=== PATIENT | male | born 1980 | race Caucasian/White ===

== ENCOUNTER 2018-03-09 20:32 | Inpatient (IN) | payer OTHER ==
[2018-03-09 21:55] VITALS: BMI 22.0
--- NOTE | 2018-03-09 22:26 | HP ---
CIWA Score - CIWA Score Nausea/Vomitin-Mild Nausea/No Vomiting Muscle Tremors: 4-Moderate,w/Arms Extend Anxiety: 4-Mod. Anxious/Guarded Agitation: 4-Moderately Restless Paroxysmal Sweats: 3 Orientation: 1-Uncertain about Date Tacttile Disturbances: 0-None Auditory Disturbances: 0-None Visual Disturbances: 0-None Headache: 0-None Present CIWA-Ar Total Score: 17 Admission ROS S - HPI Chief Complaint: C/O WITHDRAWAL SX'S. SEEKING DETOX. Allergies/Adverse Reactions: Allergies Allergy/AdvReac Type Severity Reaction Status Date / Time penicillin G Allergy Severe unknown Verified 01/16/15 14:22 History of Present Illness: 37 Y.O. MALE WITH LONG HX/O ALCOHOLISM HERE FOR DETOX. CLIENT IS KNOWN TO THIS PROGRAM. LAST HERE 2014. HE IS REFERRED BY LAST AFTER PRESENTING THERE TODAY FOR WITHDRAWAL SX'S. CLIENT WAS STABILIZED WITH LIBRIUM AND SENT HERE FOR DETOX. REPORTS LONGEST CLEAN TIME 6 MONTHS SELF SUSTAINED. REPORTS HX/O ETOH RELATED SEIZURES AND BLACK OUTS. STATES ATTEMPTED SUICIDE BY SLASHING WRIST 14 YEARS AGO. PRESENTLY DENIES SI/HI. . DENIES HX/O OD,A/V HALLUCINATIONS. PMHX: CHF, HTN PSYCH: ANXIETY, DEPRESSION Exam Limitations: No Limitations - Ebola screening Have you traveled outside of the country in the last 21 days: No (N) Have you had contact with anyone from an Ebola affected area: No Have you been sick,other than usual withdrawal symptoms: No Do you have a fever: No - Review of Systems Constitutional: Chills, Loss of Appetite, Malaise, Night Sweats, Changes in sleep EENT: reports: Blurred Vision, Dental Problems (MISSING TEETH) Respiratory: reports: No Symptoms reported Cardiac: reports: Chest Tightness (WITH DEEP BREATH) GI: reports: Diarrhea, Nausea, Poor Fluid Intake, Vomiting : reports: No Symptoms Reported Musculoskeletal: reports: Back Pain, Joint Pain, Joint Stiffness, Other ( NUMBNESS) Integumentary: reports: No Symptoms Reported Neuro: reports: Numbness, Paresthesia, Seizure, Tremors, Dizziness Endocrine: reports: No Symptoms Reported Hematology: reports: No Symptoms Reported Psychiatric: reports: Depressed Other Systems: Reviewed and Negative Patient History - Patient Medical History Hx Anemia: No Hx Asthma: Yes Hx Chronic Obstructive Pulmonary Disease (COPD): No Hx Cancer: No Hx Cardiac Disorders: Yes (ARRYTHMIA) Hx Congestive Heart Failure: Yes Hx Hypertension: Yes Hx Hypercholesterolemia: No Hx Pacemaker: No HX Cerebrovascular Accident: No Hx Seizures: Yes Hx Dementia: No Hx Diabetes: No Hx Gastrointestinal Disorders: No Hx Liver Disease: No Hx Genitourinary Disorders: No Hx Sexually Transmitted Disorders: No Hx Renal Disease (ESRD): No Hx Thyroid Disease: No Hx Human Immunodeficiency Virus (HIV): No Hx Hepatitis C: No Hx Depression: Yes Hx Suicide Attempt: Yes (cut left wrist at age 19) Hx Schizophrenia: No - Patient Surgical History Past Surgical History: Yes Hx Neurologic Surgery: No Hx Cataract Extraction: No Hx Cardiac Surgery: No Hx Lung Surgery: No Hx Breast Surgery: No Hx Breast Biopsy: No Hx Abdominal Surgery: No Hx Appendectomy: No Hx Cholecystectomy: No Hx Genitourinary Surgery: No Hx Section: No Hx Orthopedic Surgery: Yes (right femur) Anesthesia Reaction: No - PPD History Previous Implant?: Yes Documented Results: Negative w/proof Implanted On Prior [facility] Admission?: Yes Date: 01/16/15 PPD to be Administered?: Yes - Smoking Cessation Smoking history: Current every day smoker Have you smoked in the past 12 months: Yes Aproximately how many cigarettes per day: 10 Cigars Per Day: 0 Hx Chewing Tobacco Use: No Initiated information on smoking cessation: Yes 'Breaking Loose' booklet given: 03/09/18 - Substance & Tx. History Hx Alcohol Use: Yes Hx Substance Use: Yes Substance Use Type: Alcohol, Marijuana Hx Substance Use Treatment: Yes ([facility]) - Substances Abused BEER/VODKA Route: Oral Frequency: Daily Amount used: 4-25OZ/1PINT Age of first use: 1 Date of Last Use: 03/09/18 THC Route: Smoking Frequency: Daily Amount used: 7 BLUNTS Age of first use: 10 Date of Last Use: 03/09/18 Family Disease History - Family Disease History Family Disease History: Respiratory: Sister (asthma ), Other: Father (alcohol and drug dependence ), Mother (alcohol and drug dependence) Admission Physical Exam [facility] - Vital Signs Vital Signs: Vital Signs - 24 hr 03/09/18 21:54 Temperature 98.4 F Pulse Rate 112 H Respiratory 20 Rate Blood Pressure 153/98 - Physical General Appearance: Yes: Mild Distress, Moderate Distress, Alcohol on Breath, Tremorous, Anxious HEENTM: Yes: EOMI, Normal ENT Inspection, Normocephalic, Normal Voice, SHANTE, Pharynx Normal Respiratory: Yes: Chest Non-Tender, Lungs Clear, Normal Breath Sounds, No Respiratory Distress, No Accessory Muscle Use Neck: Yes: No masses,lesions,Nodules, Supple, Trachea in good position Breast: Yes: Breast Exam Deferred Cardiology: Yes: Regular Rhythm, S1, S2, Tachycardia Abdominal: Yes: Normal Bowel Sounds, Non Tender, Flat, Soft Genitourinary: Yes: Within Normal Limits Back: Yes: Normal Inspection Musculoskeletal: Yes: Gait Steady Extremities: Yes: Normal Range of Motion, Non-Tender, Tremors Neurological: Yes: Alert, Motor Strength 5/5 Integumentary: Yes: Normal Color, Dry, Warm, Other (FLUSHED FACE) Lymphatic: Yes: Within Normal Limits - Diagnostic (1) Alcohol dependence with uncomplicated withdrawal Current Visit: Yes Status: Acute (2) Alcohol related seizure Current Visit: Yes Status: Suspected (3) CHF (congestive heart failure) Current Visit: Yes Status: Chronic (4) Asthma Current Visit: Yes Status: Chronic Qualifiers: Asthma severity: mild Asthma persistence: intermittent Asthma complication type: unspecified Qualified Code(s): J45.20 - Mild intermittent asthma, uncomplicated (5) Cannabis dependence Current Visit: Yes Status: Chronic (6) HTN (hypertension) Current Visit: Yes Status: Chronic (7) Nicotine dependence Current Visit: Yes Status: Chronic Qualifiers: Nicotine product type: cigarettes Substance use status: uncomplicated Qualified Code(s): F17.210 - Nicotine dependence, cigarettes, uncomplicated (8) PTSD (post-traumatic stress disorder) Current Visit: Yes Status: Suspected Cleared for Admission [facility] - Detox or Rehab [facility] Level of Care: Medically Managed Detox Regimen/Protocol: Librium Claeared for Rehab Admission: No [facility] Breath Alcohol Content Breath Alcohol Content: 0.224 Urine Drug Screen - Results Drug Screen Negative: No Urine Drug Screen Results: THC-Marijuana, BZO-Benzodiazepines, TCA-Tricyclic Antidepress
[2018-03-09] MEDS ORDERED: P-EPHED 60MG/TRIPROLIDI 2.5MG TABLET PO PRN (23:05)
[2018-03-09] MEDS ORDERED: LOPERAMIDE HCL 2 MG CAPSULE PO PRN (23:05)
[2018-03-09] MEDS ORDERED: MAGNESIUM CITRATE 300 ML BOTTLE PO PRN (23:05)
[2018-03-09] MEDS ORDERED: MAG HYDROX/AL HYDROX/SIMETH 30 ML UNIT-DOSE CUP PO PRN (23:05)
[2018-03-09] MEDS ORDERED: MAGNESIUM HYDROX 2400MG/30ML ORAL SUSPENSION 30 ML CUP PO PRN (23:05)
[2018-03-09] MEDS ORDERED: guaiFENesin/D-METHORPHAN HB 10 ML UNIT-DOSE CUPS PO PRN (23:05)
[2018-03-09] MEDS ORDERED: MENTHOL/PHENOL 1 EACH UD MM PRN (23:05)
[2018-03-09] MEDS ORDERED: IBUPROFEN 400 MG TABLET (FP) PO PRN (23:05)
[2018-03-09] MEDS ORDERED: ACETAMINOPHEN 325 MG TABLET (FP) PO PRN (23:12)
[2018-03-10] MEDS: chlordiazePOXIDE HCL 25 MG CAPSULE PO PRN ×3 (01:52→20:50)
[2018-03-10] MEDS: MELATONIN 5 MG TABLETS PO PRN (01:53)
[2018-03-10] MEDS: chlordiazePOXIDE HCL 25 MG CAPSULE PO SCH ×5 (02:02→22:02)
[2018-03-10 10:00] LABS: HEMATOCRIT 39.1 % (35.4-49); HEMOGLOBIN 12.9 GM/dL (11.7-16.9); MCH 33.6 pg (25.7-33.7); MEAN CELL VOLUME 101.6 fl (80-96); MEAN PLT VOLUME 9.2 fl (7.5-11.1); PLATELET COUNT 116 K/MM3 (134-434); RBC 3.85 M/mm3 (4.00-5.60); RDW 13.9 % (11.9-15.9); WHITE BLOOD COUNT 8.9 K/mm3 (4.0-10.0)
--- NOTE | 2018-03-10 10:19 | EKG ---
Test Reason : Blood Pressure : / mmHG Vent. Rate : 064 BPM Atrial Rate : 064 BPM P-R Int : 160 ms QRS Dur : 110 ms QT Int : 438 ms P-R-T Axes : 061 075 071 degrees QTc Int : 451 ms NORMAL SINUS RHYTHM NON-SPECIFIC INTRA-VENTRICULAR CONDUCTION DELAY NO PREVIOUS ECGS AVAILABLE Confirmed by MARCELINA HERNANDEZ MD ([id number]) on 03/10/2018 10:19:22 AM Referred By: Confirmed By:MARCELINA HERNANDEZ MD
[2018-03-10 10:23] LABS: CHLORIDE 104 mmol/L (98-107); POTASSIUM 3.6 mmol/L (3.5-5.1); SODIUM 141 mmol/L (136-145)
[2018-03-10] MEDS: NICOTINE 14 MG/24 HOURS TOPICAL PATCH TD SCH (10:35)
[2018-03-10] MEDS: PRENATAL VITAMINS W/ FOLIC ACID TABLET (FP) PO SCH (10:36)
[2018-03-10 10:52] LABS: ALBUMIN 3.8 g/dl (3.4-5.0); ALK PHOS 86 U/L (45-117); ANION GAP 11 (8-16); BILIRUBIN,TOTAL 0.4 mg/dL (0.2-1.0); BLOOD UREA NITROGEN 5 mg/dL (7-18); CALCIUM 8.4 mg/dL (8.5-10.1); CO2 26 mmol/L (21-32); CREATININE 0.4 mg/dL (0.7-1.3); GLUCOSE,RANDOM 83 mg/dL (74-106); SGOT/AST 64 U/L (15-37); SGPT/ALT 53 U/L (12-78); TOT PROT 7.2 g/dl (6.4-8.2)
--- NOTE | 2018-03-10 11:28 | PN ---
[facility] CIWA - CIWA Score Nausea/Vomitin-No Nausea/No Vomiting Muscle Tremors: 6 Anxiety: 5 Agitation: 4-Moderately Restless Paroxysmal Sweats: 1-Minimal Palms Moist Orientation: 0-Oriented Tacttile Disturbances: 0-None Auditory Disturbances: 0-None Visual Disturbances: 0-None Headache: 0-None Present CIWA-Ar Total Score: 16 S Progress Note (SOAP) Subjective: ANXIETY,IRRITABILITY,TREMULOUS,SKIN FLUSHING, CHILLS,GOOSE BUMPS,RUNNY NOSE. Objective: 03/10/18 11:26 Vital Signs 03/10/18 03/10/18 03/10/18 03:30 03:48 04:59 Temperature 97.6 F Pulse Rate 57 L 59 L Respiratory 18 19 19 Rate Blood Pressure 136/86 03/10/18 03/10/18 03/10/18 05:00 05:59 06:29 Temperature Pulse Rate 59 L 60 58 L Respiratory 19 19 19 Rate Blood Pressure 03/10/18 03/10/18 03/10/18 06:59 07:29 07:39 Temperature 97.9 F Pulse Rate 58 L 60 59 L Respiratory 19 19 19 Rate Blood Pressure 140/84 03/10/18 03/10/18 03/10/18 07:59 08:30 09:00 Temperature Pulse Rate 62 78 78 Respiratory 19 18 18 Rate Blood Pressure 03/10/18 03/10/18 03/10/18 09:30 09:42 10:00 Temperature 98.4 F Pulse Rate 78 78 76 Respiratory 18 16 18 Rate Blood Pressure 141/90 03/10/18 03/10/18 10:30 11:00 Temperature Pulse Rate 74 78 Respiratory 18 18 Rate Blood Pressure Laboratory Tests 03/10/18 03/10/18 07:30 07:30 WBC 8.9 D RBC 3.85 L Hgb 12.9 D Hct 39.1 MCV 101.6 H MCH 33.6 MCHC 33.0 RDW 13.9 Plt Count 116 L MPV 9.2 Sodium 141 Potassium 3.6 Chloride 104 Carbon Dioxide 26 Anion Gap 11 BUN 5 L D Creatinine 0.4 L Creat Clearance w eGFR > 60 Random Glucose 83 Calcium 8.4 L Total Bilirubin 0.4 D AST 64 H D ALT 53 D Alkaline Phosphatase 86 Total Protein 7.2 Albumin 3.8 OTHER LABS PENDING Assessment: 03/10/18 11:27 MODERATE TO SEVERE WITHDRAWAL SX Plan: CONTINUE DETOX ADDITIONAL LIBRIUM 50 MG PO ONCE AT 2:00 PM TODAY INCREASE PO FLUIDS
[2018-03-10] MEDS: ASPIRIN 81 MG CHEWABLE TABLETS PO SCH (11:58)
[2018-03-10] MEDS ORDERED: DIGOXIN 0.125 MG TABLET (FP) PO SCH (12:15)
[2018-03-10] MEDS ORDERED: LISINOPRIL 5 MG TABLET (FP) PO SCH (12:15)
[2018-03-10] MEDS ORDERED: AMIODARONE HCL 200 MG TABLET (FP) PO SCH (12:15)
--- NOTE | 2018-03-10 12:25 | PN ---
[facility] Progress Note Note: PT REPORTS HE HAS NOT BEEN TAKING HIS AMADIORONE, DIGOXIN AND LISINOPRIL FOR MANY MONTHS AGO. HOWEVER PT HAS RECENT METAPROLOL SUCC.ER 50 MG PO DAILY ORDERED ON 02/13/18.
[2018-03-10] MEDS ORDERED: chlordiazePOXIDE HCL 25 MG CAPSULE PO ONE (14:00)
--- NOTE | 2018-03-10 16:49 | CONSULT ---
[facility] Psychiatric Consult - Data Date of interview: 03/10/18 Admission source: [facility] Identifying data: Readmission to [facility] for this 37 y/o [place] male seeking detox treatment on for alcohol and cannabis dependence.Patient is single,a father of one,domiciled,unemployed and supported on Public Assistance. Substance Abuse History: Confirmed by patient in this interview.Smoking history : Current every day smoker. Have you smoked in the past 12 months: Yes. Aproximately how many cigarettes per day: 10. Cigars Per Day: 0. Hx Chewing Tobacco Use: No. Initiated information on smoking cessation: Yes. 'Breaking Loose' booklet given: 03/09/18. - Substance & Tx. History. Hx Alcohol Use: Yes. Hx Substance Use: Yes. Substance Use Type: Alcohol, Marijuana. Hx Substance Use Treatment: Yes ([facility]). - Substances Abused. BEER/VODKA. Route: Oral. Frequency: Daily. Amount used: 4-25OZ/1PINT. Age of first use: 1. Date of Last Use: 03/09/18. THC. Route: Smoking. Frequency: Daily. Amount used: 7 BLUNTS. Age of first use: 10. Date of Last Use: 03/09/18 Medical History: Remarkable for hypertension,congestive heart failure,bronchial asthma (childhood),withdrawal-related seizures and a distant history of orthosurgery for fracture of right femur. Psychiatric History: No reported history of psychiatric hospitalizations.Diagnosed with MDD and Anxiety Disorder at the [facility] in [place], [place].Patient was prescribed, three years ago, zoloft 150 mg/day + trazodone 150 mg/hs (confirmed by pharmacy claims of 03/07/18 at the [facility]).Mr Fregoso is currently seeing a private psychiatrist in the [place] for medication management.Patient endorses a remote history of suicide attempt, age 19, via self-mutilation (wrist-cutting). Physical/Sexual Abuse/Trauma History: Patient denies. Additional Comment: Urine Drug Screen Results: THC-Marijuana, BZO- Benzodiazepines, TCA-Tricyclic Antidepressant.Noted. Mental Status Exam - Mental Status Exam Alert and Oriented to: Time, Place, Person Cognitive Function: Good Patient Appearance: Well Groomed Mood: Nervous, Withdrawn, Anxious Affect: Mood Congruent Patient Behavior: Fatigued, Appropriate, Cooperative Speech Pattern: Clear, Appropriate Voice Loudness: Normal Thought Process: Goal Oriented Thought Disorder: Not Present Hallucinations: Denies Suicidal Ideation: Denies Homicidal Ideation: Denies Insight/Judgement: Poor Sleep: Poorly, Difficulty falling asleep Appetite: Good Muscle strength/Tone: Normal Gait/Station: Normal Psychiatric Findings - Problem List ([place] 1, 2,3) (1) Alcohol dependence with uncomplicated withdrawal Status: Acute (2) Cannabis dependence Status: Acute (3) Nicotine dependence Status: Acute Qualifiers: Nicotine product type: cigarettes Substance use status: in withdrawal Qualified Code(s): F17.213 - Nicotine dependence, cigarettes, with withdrawal (4) MDD (major depressive disorder) Status: Chronic (5) Insomnia Status: Acute - Initial Treatment Plan Initial Treatment Plan: Psychoeducation.Sleep hygiene.Detoxification in progress.Medications : trazodone 100 mg po hs + zoloft 150 mg po daily.Side effects/benefits of both drugs are discussed with the patient.Made aware of the risk for priapism,sexual dysfunction and suicidal ideation.Mr Fregoso is in agreement with this careplan.Observation.
[2018-03-10 17:12] LABS: URINE APPEARANCE SLCLOUDY; URINE BILIRUBIN NEGATIVE (<2.0 mg/dL); URINE BLOOD NEGATIVE (NEGATIVE); URINE COLOR AMBER; URINE GLUCOSE (UA) NEGATIVE (NEGATIVE); URINE KETONE NEGATIVE (NEGATIVE); URINE LEUK ESTERASE NEGATIVE (NEGATIVE); URINE NITRITE NEGATIVE (NEGATIVE)
[2018-03-10 17:29] LABS: URINE PROTEIN 3+ (NEGATIVE)
[2018-03-10 17:31] LABS: EPI CELLS RARE /HPF (FEW); URINE MUCUS MANY
[2018-03-10] MEDS ORDERED: traZODone HCL 100 MG TABLET (FP) PO SCH (22:00)
[2018-03-10] MEDS: THIAMINE HCL 100 MG TABLET (FP) PO SCH (22:02)
[2018-03-11] MEDS: chlordiazePOXIDE HCL 25 MG CAPSULE PO PRN ×2 (06:23→14:07)
[2018-03-11] MEDS: chlordiazePOXIDE HCL 25 MG CAPSULE PO SCH ×3 (08:09→17:31)
[2018-03-11] MEDS: SERTRALINE HCL 50 MG TABLET (FP) PO SCH (10:36)
[2018-03-11] MEDS: PRENATAL VITAMINS W/ FOLIC ACID TABLET (FP) PO SCH (10:36)
[2018-03-11] MEDS: ASPIRIN 81 MG CHEWABLE TABLETS PO SCH (10:36)
[2018-03-11] MEDS: NICOTINE 14 MG/24 HOURS TOPICAL PATCH TD SCH (10:37)
[2018-03-11] MEDS ORDERED: IBUPROFEN 600 MG TABLET (FP) PO PRN (12:00)
--- NOTE | 2018-03-11 13:58 | PN ---
S CIWA - CIWA Score Nausea/Vomitin Muscle Tremors: 4-Moderate,w/Arms Extend Anxiety: 3 Agitation: 2 Paroxysmal Sweats: 3 Orientation: 2-Disoriented Date<2 days Tacttile Disturbances: 0-None Auditory Disturbances: 0-None Visual Disturbances: 0-None Headache: 0-None Present CIWA-Ar Total Score: 19 S Progress Note (SOAP) Subjective: Vomiting, Diarrhea, Interrupted Sleep, Sweating, Body Aches, Tremors. Objective: PATIENT A & O X 2 (UNCERTAIN ABOUT CURRENT DAY / DATE). PATIENT OBSERVED AMBULATING ON UNIT. NO ACUTE DISTRESS. 03/11/18 13:54 Vital Signs Temperature 96.5 F L 03/11/18 09:30 Pulse Rate 60 03/11/18 09:30 Respiratory Rate 18 03/11/18 09:30 Blood Pressure 147/94 03/11/18 09:30 O2 Sat by Pulse Oximetry (%) Laboratory Tests 03/10/18 03/10/18 03/10/18 07:30 07:30 07:30 WBC 8.9 D RBC 3.85 L Hgb 12.9 D Hct 39.1 MCV 101.6 H MCH 33.6 MCHC 33.0 RDW 13.9 Plt Count 116 L MPV 9.2 Sodium 141 Potassium 3.6 Chloride 104 Carbon Dioxide 26 Anion Gap 11 BUN 5 L D Creatinine 0.4 L Creat Clearance w eGFR > 60 Random Glucose 83 Calcium 8.4 L Total Bilirubin 0.4 D AST 64 H D ALT 53 D Alkaline Phosphatase 86 Total Protein 7.2 Albumin 3.8 Urine Color Urine Appearance Urine pH Ur Specific Star Urine Protein Urine Glucose (UA) Urine Ketones Urine Blood Urine Nitrite Urine Bilirubin Urine Urobilinogen Ur Leukocyte Esterase Urine WBC (Auto) Urine RBC (Auto) Ur Epithelial Cells Urine Mucus Digoxin RPR Titer Nonreactive 03/10/18 03/10/18 11:40 15:50 WBC RBC Hgb Hct MCV MCH MCHC RDW Plt Count MPV Sodium Potassium Chloride Carbon Dioxide Anion Gap BUN Creatinine Creat Clearance w eGFR Random Glucose Calcium Total Bilirubin AST ALT Alkaline Phosphatase Total Protein Albumin Urine Color Sarina Urine Appearance Slcloudy Urine pH 6.0 Ur Specific Star 1.030 Urine Protein 3+ H Urine Glucose (UA) Negative Urine Ketones Negative Urine Blood Negative Urine Nitrite Negative Urine Bilirubin Negative Urine Urobilinogen 2.0 Ur Leukocyte Esterase Negative Urine WBC (Auto) 4 Urine RBC (Auto) 17 Ur Epithelial Cells Rare Urine Mucus Many Digoxin 0.13 L RPR Titer LABS NOTED. 03/11/18 14:05 Assessment: 03/11/18 13:54 WITHDRAWAL SYMPTOMS. HYPERTENSION. 03/11/18 14:05 Plan: CONTINUE DETOX. LISINOPRIL, 10 MG PO DAILY FOR PERSISTENTLY ELEVATED BP (PATIENT REPORTS THAT HE HAS TAKEN THIS MEDICATION IN THE PAST FOR HTN.
--- NOTE | 2018-03-11 14:26 | PN ---
[facility] Progress Note Note: Psychiatry Attending's note : Approached by patient. Current dose of trazodone not effective. Request : increase of dose. Mr Fregoso is used to 150 mg/hs. Plan : Trazodone 150 mg po hs.Ordered. Patient agrees.
[2018-03-11] MEDS: LISINOPRIL 10 MG TABLET (FP) PO SCH (14:50)
[2018-03-11] MEDS: hydrOXYzine PAMOATE 50 MG CAPSULE (FP) PO PRN (20:14)
[2018-03-11] MEDS: traZODone HCL 50 MG TABLET (FP) PO SCH (22:17)
[2018-03-11] MEDS: chlordiazePOXIDE 5 MG CAPSULE PO SCH (22:17)
[2018-03-11] MEDS: THIAMINE HCL 100 MG TABLET (FP) PO SCH (22:17)
[2018-03-11] MEDS: MELATONIN 5 MG TABLETS PO PRN (22:18)
[2018-03-12] MEDS: chlordiazePOXIDE 5 MG CAPSULE PO SCH ×3 (06:04→17:15)
[2018-03-12] MEDS: LISINOPRIL 10 MG TABLET (FP) PO SCH (10:04)
[2018-03-12] MEDS: ASPIRIN 81 MG CHEWABLE TABLETS PO SCH (10:04)
[2018-03-12] MEDS: SERTRALINE HCL 50 MG TABLET (FP) PO SCH (10:05)
[2018-03-12] MEDS: NICOTINE 14 MG/24 HOURS TOPICAL PATCH TD SCH (10:05)
[2018-03-12] MEDS: PRENATAL VITAMINS W/ FOLIC ACID TABLET (FP) PO SCH (10:05)
[2018-03-12] MEDS: chlordiazePOXIDE HCL 25 MG CAPSULE PO PRN (14:12)
--- NOTE | 2018-03-12 15:04 | PN ---
[facility] Progress Note (SOAP) Subjective: Diarrhea, Tremors, Sweating. Objective: PATIENT A & O X 3, OBSERVED AMBULATING ON UNIT. NO ACUTE DISTRESS. 03/12/18 14:59 Vital Signs Temperature 97.5 F L 03/12/18 13:19 Pulse Rate 63 03/12/18 13:19 Respiratory Rate 18 03/12/18 13:19 Blood Pressure 122/78 03/12/18 13:19 O2 Sat by Pulse Oximetry (%) Laboratory Tests 03/10/18 03/10/18 03/10/18 07:30 07:30 07:30 WBC 8.9 D RBC 3.85 L Hgb 12.9 D Hct 39.1 MCV 101.6 H MCH 33.6 MCHC 33.0 RDW 13.9 Plt Count 116 L MPV 9.2 Sodium 141 Potassium 3.6 Chloride 104 Carbon Dioxide 26 Anion Gap 11 BUN 5 L D Creatinine 0.4 L Creat Clearance w eGFR > 60 Random Glucose 83 Calcium 8.4 L Total Bilirubin 0.4 D AST 64 H D ALT 53 D Alkaline Phosphatase 86 Total Protein 7.2 Albumin 3.8 Urine Color Urine Appearance Urine pH Ur Specific [place] Urine Protein Urine Glucose (UA) Urine Ketones Urine Blood Urine Nitrite Urine Bilirubin Urine Urobilinogen Ur Leukocyte Esterase Urine WBC (Auto) Urine RBC (Auto) Ur Epithelial Cells Urine Mucus Digoxin RPR Titer Nonreactive 03/10/18 03/10/18 11:40 15:50 WBC RBC Hgb Hct MCV MCH MCHC RDW Plt Count MPV Sodium Potassium Chloride Carbon Dioxide Anion Gap BUN Creatinine Creat Clearance w eGFR Random Glucose Calcium Total Bilirubin AST ALT Alkaline Phosphatase Total Protein Albumin Urine Color Sarina Urine Appearance Slcloudy Urine pH 6.0 Ur Specific [place] 1.030 Urine Protein 3+ H Urine Glucose (UA) Negative Urine Ketones Negative Urine Blood Negative Urine Nitrite Negative Urine Bilirubin Negative Urine Urobilinogen 2.0 Ur Leukocyte Esterase Negative Urine WBC (Auto) 4 Urine RBC (Auto) 17 Ur Epithelial Cells Rare Urine Mucus Many Digoxin 0.13 L RPR Titer LABS NOTED. Assessment: 03/12/18 14:59 WITHDRAWAL SYMPTOMS. Plan: CONTINUE DETOX. INCRASE DAILY PO FLUID INTAKE. PRN IMMODIUM FOR DIARRHEA. PATIENT ADVISED TO FOLLOW-UP WITH CELL PHONE REPAIR TECHNICIAN DR. HUBBARD OF [facility] ( [place], [place] AFTER DISCAHRGE FROM DETOX UNIT FOR MEDICAL ASSESSMENT AND OR HISTORY OF CHF AND HTN. PATIENT NOTES THAT HE WILL GOING TO SEE DR. HUBBARD FOR MEDICAL APPOINTMENT WITHIN THE NEXT DAY OR TWO. PATIENT SCHEDULED FOR D/C TOMORROW.
[2018-03-12] MEDS: chlordiazePOXIDE HCL 10 MG CAPSULE PO SCH (22:23)
[2018-03-12] MEDS: hydrOXYzine PAMOATE 50 MG CAPSULE (FP) PO PRN (22:23)
[2018-03-12] MEDS: traZODone HCL 50 MG TABLET (FP) PO SCH (22:23)
[2018-03-12] MEDS: THIAMINE HCL 100 MG TABLET (FP) PO SCH (22:23)
[2018-03-13] MEDS: chlordiazePOXIDE HCL 10 MG CAPSULE PO SCH (06:08)
[2018-03-13 06:40] VITALS: BP 120/74; PULSE 56; TEMP 97.5
[2018-03-13] MEDS: NICOTINE 14 MG/24 HOURS TOPICAL PATCH TD SCH (09:22)
[2018-03-13] MEDS: ASPIRIN 81 MG CHEWABLE TABLETS PO SCH (09:22)
[2018-03-13] MEDS: PRENATAL VITAMINS W/ FOLIC ACID TABLET (FP) PO SCH (09:22)
[2018-03-13] MEDS: SERTRALINE HCL 50 MG TABLET (FP) PO SCH (09:22)
[2018-03-13] MEDS: LISINOPRIL 10 MG TABLET (FP) PO SCH (09:22)
--- NOTE | 2018-03-13 16:04 | PN ---
S Progress Note (SOAP) Subjective: denies any complaints Objective: 03/13/18 16:03 A & O x 3 In no acute distress Vital Signs Temperature 97.5 F L 03/13/18 06:39 Pulse Rate 56 L 03/13/18 06:39 Respiratory Rate 18 03/13/18 06:39 Blood Pressure 120/74 03/13/18 06:39 O2 Sat by Pulse Oximetry (%) Assessment: 03/13/18 16:04 Detox successfully completed Plan: for discharge
--- NOTE | 2018-03-13 16:06 | DS ---
[facility] Detox Discharge Summary Admission Date: 03/09/18 Discharge Date: 03/13/18 - History Additional Comments: Pt for discharge Will do aftercare as out patient in the community Will follow up with PMD Dr Urbano in the week at [facility] 2 weeks supply of medical prescriptions sent electronically to pt's pharmacy at [facility] - pt aware Pertinent Past History: CHF HTN Asthma - Physical Exam Results Vital Signs: Vital Signs Temperature 97.5 F L 03/13/18 06:39 Pulse Rate 56 L 03/13/18 06:39 Respiratory Rate 18 03/13/18 06:39 Blood Pressure 120/74 03/13/18 06:39 O2 Sat by Pulse Oximetry (%) Pertinent Admission Physical Exam Findings: Withdrawal sx - Treatment Hospital Course: Detox Protocol Followed, Detoxed Safely, Responded well, Discharged Condition Good, Rehab Referral Accepted Patient has Accepted a Rehab Referral to: O/P Aftercare Meetings - Medication Discharge Medications: Ambulatory Orders Buspirone HCl [Buspar -] 10 mg PO DAILY #30 tablet 01/17/15 traZODone HCL [Desyrel -] 100 mg PO HS #30 tablet 01/17/15 Amiodarone HCl 200 mg PO DAILY 03/10/18 Aspirin [ASA -] 81 mg PO DAILY 30 Days #30 tab.chew 03/13/18 Digoxin [Lanoxin -] 125 mcg PO DAILY 15 Days #15 tablet 03/13/18 Folic Acid - 1 tab PO DAILY 15 Days #15 tablet 03/13/18 Lisinopril 2.5 mg PO DAILY #14 tablet 03/13/18 Metoprolol Succinate 50 mg PO DAILY 15 Days #15 tab.er.24h 03/13/18 - Diagnosis (1) Alcohol dependence with uncomplicated withdrawal Status: Acute (2) Cannabis dependence Status: Acute (3) Insomnia Status: Acute (4) Nicotine dependence Status: Acute Qualifiers: Nicotine product type: cigarettes Substance use status: in withdrawal Qualified Code(s): F17.213 - Nicotine dependence, cigarettes, with withdrawal (5) Seizure disorder Status: Acute (6) Asthma Status: Chronic Qualifiers: Asthma severity: mild Asthma persistence: intermittent Asthma complication type: uncomplicated Qualified Code(s): J45.20 - Mild intermittent asthma, uncomplicated (7) CHF (congestive heart failure) Status: Chronic Qualifiers: Heart failure type: unspecified Heart failure chronicity: unspecified Qualified Code(s): I50.9 - Heart failure, unspecified (8) HTN (hypertension) Status: Chronic Qualifiers: Hypertension type: essential hypertension Qualified Code(s): I10 - Essential (primary) hypertension (9) Alcohol related seizure Status: Suspected - AMA Did Patient Leave Against Medical Advice: No
== END 2018-03-13 08:50 | disposition home or self-care (01) | DRG 755 ==
LOC: YASAS 20:32 → Y3N 23:10
PROVIDERS: ADMIT Surgery; ATTEND Surgery
PROC: HZ2ZZZZ Detoxification Services for Substance Abuse Treatment (ICD-10-PCS; principal; 2018-03-09)
DX: F43.10 Post-traumatic stress disorder, unspecified (principal); F10.230 Alcohol dependence with withdrawal, uncomplicated; F12.20 Cannabis dependence, uncomplicated; F17.210 Nicotine dependence, cigarettes, uncomplicated; F32.9 Major depressive disorder, single episode, unspecified; G40.509 Epileptic seizures related to external causes, not intractable, without status epilepticus; G47.00 Insomnia, unspecified; I10 Essential (primary) hypertension; I50.9 Heart failure, unspecified; J45.20 Mild intermittent asthma, uncomplicated; Z91.5 Personal history of self-harm; Z88.0 Allergy status to penicillin
CPT/HCPCS: 36415; 80053; 80162; 81003; 81015; 85027; 86593; 93005; 93010

== ENCOUNTER 2018-12-14 14:17 | Inpatient (IN) | payer OTHER ==
[2018-12-14 15:10] VITALS: BMI 22.0
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
[2018-12-14] MEDS ORDERED: MAG HYDROX/AL HYDROX/SIMETH 30 ML UNIT-DOSE CUP PO PRN (17:50)
[2018-12-14] MEDS ORDERED: BISMUTH SUBSALICYLATE 524 MG/30 ML UD PO PRN (17:50)
[2018-12-14] MEDS ORDERED: ACETAMINOPHEN 325 MG TABLET (FP) PO PRN ×2 (17:50)
[2018-12-14] MEDS ORDERED: NICOTINE POLACRILEX 2 MG GUM BUC PRN (17:50)
[2018-12-14] MEDS ORDERED: MENTHOL/PHENOL 1 EACH UD MM PRN (17:50)
[2018-12-14] MEDS ORDERED: MAGNESIUM CITRATE 300 ML BOTTLE PO PRN (17:50)
[2018-12-14] MEDS ORDERED: IBUPROFEN 400 MG TABLET (FP) PO PRN (17:50)
[2018-12-14] MEDS ORDERED: MAGNESIUM HYDROX 2400MG/30ML ORAL SUSPENSION 30 ML CUP PO PRN (17:50)
[2018-12-14] MEDS ORDERED: ALBUTEROL SO4 0.083% IH SOL 2.5 MG/3 ML VIAL.NEB. NEB PRN (17:54)
[2018-12-14] MEDS: chlordiazePOXIDE HCL 25 MG CAPSULE PO PRN (20:14)
[2018-12-14] MEDS: LISINOPRIL 5 MG TABLET (FP) PO SCH (20:16)
[2018-12-14] MEDS: ASPIRIN 81 MG CHEWABLE TABLETS PO SCH (20:16)
[2018-12-14] MEDS: DIGOXIN 0.125 MG TABLET (FP) PO SCH (20:17)
[2018-12-14] MEDS: chlordiazePOXIDE HCL 25 MG CAPSULE PO SCH (22:36)
[2018-12-14] MEDS: THIAMINE HCL 100 MG TABLET (FP) PO SCH (22:37)
[2018-12-14] MEDS: MELATONIN 5 MG TABLETS PO PRN (22:37)
[2018-12-15] MEDS: chlordiazePOXIDE HCL 25 MG CAPSULE PO SCH ×4 (05:49→22:58)
[2018-12-15] MEDS: ASPIRIN 81 MG CHEWABLE TABLETS PO SCH (10:32)
[2018-12-15] MEDS: PRENATAL VITAMINS W/ FOLIC ACID TABLET (FP) PO SCH (10:32)
[2018-12-15] MEDS: DIGOXIN 0.125 MG TABLET (FP) PO SCH (10:33)
[2018-12-15] MEDS: FOLIC ACID 1 MG TABLET (FP) PO SCH (10:33)
[2018-12-15] MEDS: LISINOPRIL 5 MG TABLET (FP) PO SCH (10:34)
[2018-12-15 11:01] LABS: HEMATOCRIT 38.4 % (35.4-49); HEMOGLOBIN 13.1 GM/dL (11.7-16.9); MCHC 34.2 g/dl (32.0-35.9); MEAN CELL VOLUME 99.2 fl (80-96); MEAN PLT VOLUME 8.8 fl (7.5-11.1); PLATELET COUNT 165 K/MM3 (134-434); RBC 3.87 M/mm3 (4.00-5.60); RDW 16.3 % (11.9-15.9); WHITE BLOOD COUNT 5.7 K/mm3 (4.0-10.0)
[2018-12-15 11:06] LABS: ALBUMIN 3.9 g/dl (3.4-5.0); ALK PHOS 90 U/L (45-117); ANION GAP 6 MMOL/L (8-16); BILIRUBIN,TOTAL 0.6 mg/dL (0.2-1); BLOOD UREA NITROGEN 10 mg/dL (7-18); CALCIUM 8.7 mg/dL (8.5-10.1); CHLORIDE 104 mmol/L (98-107); CO2 28 mmol/L (21-32); CREATININE 0.8 mg/dL (0.55-1.3); GLUCOSE,RANDOM 83 mg/dL (74-106); SGOT/AST 152 U/L (15-37); SGPT/ALT 80 U/L (13-61); SODIUM 138 mmol/L (136-145); TOT PROT 8.7 g/dl (6.4-8.2)
[2018-12-15] MEDS: chlordiazePOXIDE HCL 25 MG CAPSULE PO PRN (12:58)
--- NOTE | 2018-12-15 15:58 | CONSULT ---
[facility] Psychiatric Consult - Data Date of interview: 12/15/18 Admission source: [facility] Identifying data: This is one of multiple admissions to [facility] for this 38 y/ o [place] male, referred by [facility], for detoxification (alcohol, cannabis, benzodiazepine). Interviewed on . Patient is single, a father of one, domiciled, unemployed and supported on Public Assistance. Substance Abuse History: Confirmed by the patient in this interview. Details in current [facility] report : Smoking history: Current every day smoker. Have you smoked in the past 12 months: Yes. Aproximately how many cigarettes per day: 10. Cigars Per Day: 0. Hx Chewing Tobacco Use: No. Initiated information on smoking cessation: No. - Substances Abused. Alcohol. Route: Oral. Frequency: Daily. Amount used: 1 PINT VODKA. Age of first use: 10. Date of Last Use: 12/14/18. Marijuana/Hashish. Route: Smoking. Frequency: Daily. Amount used: 1 ounce. Age of first use: 10. Date of Last Use: 12/14/18 Medical History: Consistent with dyslipidemia, hypertension, congestive heart failure, bronchial asthma (childhood), withdrawal-related seizures and a distant history of orthosurgery for fracture of right femur (age 19). Psychiatric History: Patient denies history of psychiatric hospitalizations. Carries a lifetime diagnosis of MDD and Anxiety Disorder. Mr Zenobia beaver sees a psychiatrist at the [facility] for medication management (zoloft 150 mg/day + trazodone 100 mg/hs). Endorses consistent adherence to medications (last taken prior [facility] visit). Reported history of one suicide attempt, at age 19 , via self-mutilation (wrist-cutting). Physical/Sexual Abuse/Trauma History: No reported history of abuse. Additional Comment: Urine Drug Screen Results: THC-Marijuana, BZO- Benzodiazepines. Noted. Mental Status Exam - Mental Status Exam Alert and Oriented to: Time, Place, Person Cognitive Function: Good Patient Appearance: Well Groomed Mood: Nervous, Anxious Affect: Mood Congruent, Constricted Patient Behavior: Fatigued, Appropriate, Cooperative Speech Pattern: Clear, Appropriate Thought Process: Intact, Goal Oriented Thought Disorder: Not Present Hallucinations: Denies Suicidal Ideation: Denies Homicidal Ideation: Denies Insight/Judgement: Poor Sleep: Poorly, Difficulty falling asleep Appetite: Good Muscle strength/Tone: Normal Gait/Station: Normal Psychiatric Findings - Problem List ([place] 1, 2,3) (1) Alcohol dependence with uncomplicated withdrawal Current Visit: Yes Status: Acute (2) Cannabis dependence Current Visit: Yes Status: Chronic (3) Nicotine dependence Current Visit: Yes Status: Chronic Qualifiers: Nicotine product type: cigarettes Substance use status: in withdrawal Qualified Code(s): F17.213 - Nicotine dependence, cigarettes, with withdrawal (4) MDD (major depressive disorder) Current Visit: Yes Status: Chronic Comment: As per history. On medications. (5) Insomnia Current Visit: Yes Status: Chronic - Initial Treatment Plan Initial Treatment Plan: Psychoeducation. Sleep hygiene. Detoxification. Support. AA meetings. Medications resumed : zoloft 150 mg po daily + trazodone 100 mg po hs. Side effects/benefits of both drugs are discussed with the patient. Mr Zenobia beaver is made aware of the risk of priapism (trazodone) and suicidal ideation (zoloft). Patient reports a sustained history of good tolerability to these medications. Verbal consent obtained from patient. Observation.
[2018-12-15] MEDS: NICOTINE 14 MG/24 HOURS TOPICAL PATCH TD SCH (16:05)
[2018-12-15] MEDS ORDERED: diphenhydrAMINE HCL 25 MG CAPSULE (FP) PO ONE ×2 (16:06→21:51)
[2018-12-15] MEDS: diphenhydrAMINE HCL 50 MG CAPSULE PO PRN (16:07)
[2018-12-15] MEDS: THIAMINE HCL 100 MG TABLET (FP) PO SCH (22:58)
[2018-12-15] MEDS: traZODone HCL 50 MG TABLET (FP) PO SCH (22:58)
--- NOTE | 2018-12-16 00:06 | PN ---
S CIWA - CIWA Score Nausea/Vomitin-No Nausea/No Vomiting Muscle Tremors: 3 Anxiety: 3 Agitation: 0-Normal Activity Paroxysmal Sweats: 3 Orientation: 0-Oriented Tacttile Disturbances: 0-None Auditory Disturbances: 3-Moderate Harsh/Frighten Visual Disturbances: 3-Moderate Sensitivity Headache: 0-None Present CIWA-Ar Total Score: 15 S Progress Note (SOAP) Subjective: Body Aches, Tremors, Sweating, Interrupted Sleep. Objective: PATIENT A & O X 3, OBSERVED AMBULATING ON UNIT. IN NO ACUTE DISTRESS. 12/16/18 00:04 Vital Signs Temperature 97.5 F L 12/15/18 20:00 Pulse Rate 65 12/15/18 20:00 Respiratory Rate 18 12/15/18 20:00 Blood Pressure 134/86 12/15/18 20:00 O2 Sat by Pulse Oximetry (%) Laboratory Tests 12/15/18 12/15/18 12/15/18 07:00 07:00 07:00 WBC 5.7 RBC 3.87 L Hgb 13.1 Hct 38.4 MCV 99.2 H MCH 34.0 H MCHC 34.2 RDW 16.3 H Plt Count 165 D MPV 8.8 Sodium 138 Potassium 4.0 Chloride 104 Carbon Dioxide 28 Anion Gap 6 L BUN 10 Creatinine 0.8 Creat Clearance w eGFR > 60 Random Glucose 83 Calcium 8.7 Total Bilirubin 0.6 AST 152 H ALT 80 H Alkaline Phosphatase 90 Total Protein 8.7 H Albumin 3.9 HIV 1&2 Antibody Screen Negative HIV P24 Antigen Negative LABS NOTED. Assessment: 12/16/18 00:05 WITHDRAWAL SYMPTOMS. ELEVATED LIVER ENZYMES. HYPERTENSION. Plan: CONTINUE DETOX. INCREASE DAILY PO FLUID INTAKE,. REPEAT AST TOMORROW AM FOR ELEVATED ADMISSION LEVEL. CONTINUE TO MONITOR BLOOD PRESSURE.
[2018-12-16] MEDS: chlordiazePOXIDE HCL 25 MG CAPSULE PO SCH ×3 (05:02→17:36)
[2018-12-16] MEDS: DIGOXIN 0.125 MG TABLET (FP) PO SCH (10:05)
[2018-12-16] MEDS: FOLIC ACID 1 MG TABLET (FP) PO SCH (10:05)
[2018-12-16] MEDS: NICOTINE 14 MG/24 HOURS TOPICAL PATCH TD SCH (10:05)
[2018-12-16] MEDS: ASPIRIN 81 MG CHEWABLE TABLETS PO SCH (10:05)
[2018-12-16] MEDS: LISINOPRIL 5 MG TABLET (FP) PO SCH (10:05)
[2018-12-16] MEDS: PRENATAL VITAMINS W/ FOLIC ACID TABLET (FP) PO SCH (10:05)
[2018-12-16] MEDS: SERTRALINE HCL 50 MG TABLET (FP) PO SCH (10:05)
[2018-12-16] MEDS ORDERED: diphenhydrAMINE HCL 25 MG CAPSULE (FP) PO ONE (10:56)
[2018-12-16] MEDS: diphenhydrAMINE HCL 50 MG CAPSULE PO PRN (10:57)
[2018-12-16] MEDS: chlordiazePOXIDE HCL 25 MG CAPSULE PO PRN (13:27)
[2018-12-16] MEDS ORDERED: LISINOPRIL 5 MG TABLET (FP) PO ONE (14:37)
--- NOTE | 2018-12-16 14:39 | PN ---
[facility] CIWA - CIWA Score Nausea/Vomitin-No Nausea/No Vomiting Muscle Tremors: 5 Anxiety: 2 Agitation: 0-Normal Activity Paroxysmal Sweats: 3 Orientation: 0-Oriented Tacttile Disturbances: 0-None Auditory Disturbances: 0-None Visual Disturbances: 2-Mild Sensitivity Headache: 0-None Present CIWA-Ar Total Score: 12 S Progress Note (SOAP) Subjective: Tremors, Diarrhea, Sweating. Objective: PATIENT A & O X 3, OBSERVED AMBULATING ON UNIT. IN NO ACUTE DISTRESS. 12/16/18 14:36 Vital Signs Temperature 97.8 F 12/16/18 13:44 Pulse Rate 84 12/16/18 13:44 Respiratory Rate 18 12/16/18 13:44 Blood Pressure 138/93 12/16/18 13:44 O2 Sat by Pulse Oximetry (%) Laboratory Tests 12/15/18 12/15/18 12/15/18 07:00 07:00 07:00 WBC 5.7 RBC 3.87 L Hgb 13.1 Hct 38.4 MCV 99.2 H MCH 34.0 H MCHC 34.2 RDW 16.3 H Plt Count 165 D MPV 8.8 Sodium 138 Potassium 4.0 Chloride 104 Carbon Dioxide 28 Anion Gap 6 L BUN 10 Creatinine 0.8 Creat Clearance w eGFR > 60 Random Glucose 83 Calcium 8.7 Total Bilirubin 0.6 AST 152 H ALT 80 H Alkaline Phosphatase 90 Total Protein 8.7 H Albumin 3.9 RPR Titer HIV 1&2 Antibody Screen Negative HIV P24 Antigen Negative 12/15/18 12/16/18 07:00 07:40 WBC RBC Hgb Hct MCV MCH MCHC RDW Plt Count MPV Sodium Potassium Chloride Carbon Dioxide Anion Gap BUN Creatinine Creat Clearance w eGFR Random Glucose Calcium Total Bilirubin AST 97 H ALT Alkaline Phosphatase Total Protein Albumin RPR Titer Nonreactive HIV 1&2 Antibody Screen HIV P24 Antigen LABS NOTED. RESULT OF REPEAT AST LEVEL NOTED, REDUCTION IN LEVEL NOTED. 12/16/18 14:38 Assessment: 12/16/18 14:38 WITHDRAWAL SYMPTOMS. HYPERTENSION. ELEVATED LIVER ENZYMES. 12/16/18 14:39 Plan: CONTINUE DETOX. INCREASE DAILY DOSE OF LISINOPRIL TO 10 MG PO DAILY FOR PERSISTENTLY ELEVATED BLOOD PRESSURE DESPITE TREATMENT.
[2018-12-16] MEDS: THIAMINE HCL 100 MG TABLET (FP) PO SCH (22:30)
[2018-12-16] MEDS: chlordiazePOXIDE HCL 10 MG CAPSULE PO SCH (22:31)
[2018-12-16] MEDS: traZODone HCL 50 MG TABLET (FP) PO SCH (22:31)
[2018-12-16] MEDS: diphenhydrAMINE HCL 25 MG CAPSULE (FP) PO PRN (22:31)
[2018-12-16] MEDS ORDERED: chlordiazePOXIDE HCL 10 MG CAPSULE PO PRN (23:00)
[2018-12-17] MEDS: chlordiazePOXIDE HCL 10 MG CAPSULE PO SCH ×3 (05:38→17:32)
[2018-12-17] MEDS ORDERED: LISINOPRIL 10 MG TABLET (FP) PO SCH (10:00)
[2018-12-17] MEDS: PRENATAL VITAMINS W/ FOLIC ACID TABLET (FP) PO SCH (10:13)
[2018-12-17] MEDS: NICOTINE 14 MG/24 HOURS TOPICAL PATCH TD SCH (10:13)
[2018-12-17] MEDS: DIGOXIN 0.125 MG TABLET (FP) PO SCH (10:14)
[2018-12-17] MEDS: SERTRALINE HCL 50 MG TABLET (FP) PO SCH (10:15)
[2018-12-17] MEDS: ASPIRIN 81 MG CHEWABLE TABLETS PO SCH (10:15)
[2018-12-17] MEDS: FOLIC ACID 1 MG TABLET (FP) PO SCH (10:15)
[2018-12-17] MEDS: diphenhydrAMINE HCL 25 MG CAPSULE (FP) PO PRN ×2 (10:20→22:10)
--- NOTE | 2018-12-17 12:08 | PN ---
S CIWA - CIWA Score Nausea/Vomitin-No Nausea/No Vomiting Muscle Tremors: 2 Anxiety: 1-Mildly Anxious Agitation: 2 Paroxysmal Sweats: 1-Minimal Palms Moist Orientation: 0-Oriented Tacttile Disturbances: 0-None Auditory Disturbances: 0-None Visual Disturbances: 0-None Headache: 1-Very Mild CIWA-Ar Total Score: 7 S Progress Note (SOAP) Subjective: feeling better less tremor mild sweating social with peers in day room Objective: 12/17/18 12:08 Vital Signs Temperature 98.5 F 12/17/18 09:26 Pulse Rate 64 12/17/18 10:14 Respiratory Rate 18 12/17/18 09:26 Blood Pressure 138/89 12/17/18 09:26 O2 Sat by Pulse Oximetry (%) Laboratory Last Values WBC 5.7 K/mm3 (4.0-10.0) 12/15/18 07:00 RBC 3.87 M/mm3 (4.00-5.60) L 12/15/18 07:00 Hgb 13.1 GM/dL (11.7-16.9) 12/15/18 07:00 Hct 38.4 % (35.4-49) 12/15/18 07:00 MCV 99.2 fl (80-96) H 12/15/18 07:00 MCH 34.0 pg (25.7-33.7) H 12/15/18 07:00 MCHC 34.2 g/dl (32.0-35.9) 12/15/18 07:00 RDW 16.3 % (11.9-15.9) H 12/15/18 07:00 Plt Count 165 K/MM3 (134-434) D 12/15/18 07:00 MPV 8.8 fl (7.5-11.1) 12/15/18 07:00 Sodium 138 mmol/L (136-145) 12/15/18 07:00 Potassium 4.0 mmol/L (3.5-5.1) 12/15/18 07:00 Chloride 104 mmol/L (98-107) 12/15/18 07:00 Carbon Dioxide 28 mmol/L (21-32) 12/15/18 07:00 Anion Gap 6 MMOL/L (8-16) L 12/15/18 07:00 BUN 10 mg/dL (7-18) 12/15/18 07:00 Creatinine 0.8 mg/dL (0.55-1.3) 12/15/18 07:00 Creat Clearance w eGFR > 60 (>60) 12/15/18 07:00 Random Glucose 83 mg/dL (74-106) 12/15/18 07:00 Calcium 8.7 mg/dL (8.5-10.1) 12/15/18 07:00 Total Bilirubin 0.6 mg/dL (0.2-1) 12/15/18 07:00 AST 97 U/L (15-37) H 12/16/18 07:40 ALT 80 U/L (13-61) H 12/15/18 07:00 Alkaline Phosphatase 90 U/L (45-117) 12/15/18 07:00 Total Protein 8.7 g/dl (6.4-8.2) H 12/15/18 07:00 Albumin 3.9 g/dl (3.4-5.0) 12/15/18 07:00 RPR Titer Nonreactive (NONREACTIVE) 12/15/18 07:00 HIV 1&2 Antibody Screen Negative 12/15/18 07:00 HIV P24 Antigen Negative 12/15/18 07:00 lab noted Assessment: 12/17/18 12:08 mild withdrawal sx Plan: continue detox
[2018-12-17] MEDS: THIAMINE HCL 100 MG TABLET (FP) PO SCH (22:10)
[2018-12-17] MEDS: traZODone HCL 50 MG TABLET (FP) PO SCH (22:10)
[2018-12-17] MEDS: MELATONIN 5 MG TABLETS PO PRN (22:11)
[2018-12-17] MEDS ORDERED: chlordiazePOXIDE HCL 10 MG CAPSULE PO SCH (23:00)
[2018-12-18 06:28] VITALS: BP 116/74; PULSE 66; TEMP 96.6
--- NOTE | 2018-12-18 15:02 | DS ---
[facility] Detox Discharge Summary Admission Date: 12/14/18 Discharge Date: 12/18/18 - History Present History: Alcohol Dependence Additional Comments: 38 years old male admitted on 12/14/18 for alcohol withdrawal stabilization completed detox regimen aftercare [facility] - Physical Exam Results Vital Signs: Vital Signs Temperature 96.6 F L 12/18/18 06:27 Pulse Rate 66 12/18/18 06:27 Respiratory Rate 18 12/18/18 06:30 Blood Pressure 116/74 12/18/18 06:27 O2 Sat by Pulse Oximetry (%) Pertinent Admission Physical Exam Findings: alcohol withdrawal sx - Treatment Hospital Course: Detox Protocol Followed, Detoxed Safely, Responded well, Discharged Condition Good, Rehab Referral Accepted Patient has Accepted a Rehab Referral to: [facility] - Medication Discharge Medications: Ambulatory Orders Aspirin [ASA -] 81 mg PO DAILY 30 Days #30 tab.chew 03/13/18 Digoxin [Lanoxin -] 125 mcg PO DAILY 15 Days #15 tablet 03/13/18 Folic Acid - 1 tab PO DAILY 15 Days #15 tablet 03/13/18 Lisinopril 2.5 mg PO DAILY #14 tablet 03/13/18 Metoprolol Succinate 50 mg PO DAILY 15 Days #15 tab.er.24h 03/13/18 Amiodarone HCl [Cordarone -] 200 mg PO DAILY 12/14/18 Diphenhydramine [Benadryl -] 50 mg PO DAILY 12/14/18 Sertraline HCl [Zoloft -] 150 mg PO DAILY 12/14/18 - Diagnosis (1) Alcohol dependence with uncomplicated withdrawal Status: Acute (2) Asthma Status: Chronic Qualifiers: Asthma severity: mild Asthma persistence: intermittent Asthma complication type: uncomplicated Qualified Code(s): J45.20 - Mild intermittent asthma, uncomplicated (3) CHF (congestive heart failure) Status: Chronic Qualifiers: Heart failure type: unspecified Heart failure chronicity: unspecified Qualified Code(s): I50.9 - Heart failure, unspecified (4) HTN (hypertension) Status: Chronic Qualifiers: Hypertension type: essential hypertension Qualified Code(s): I10 - Essential (primary) hypertension (5) Nicotine dependence Status: Acute Qualifiers: Nicotine product type: cigarettes Substance use status: in withdrawal Qualified Code(s): F17.213 - Nicotine dependence, cigarettes, with withdrawal - AMA Did Patient Leave Against Medical Advice: No
== END 2018-12-18 09:00 | disposition home or self-care (01) | DRG 775 ==
LOC: YASAS 14:17 → Y3N 18:36
PROVIDERS: ADMIT Surgery; ATTEND Surgery
PROC: HZ2ZZZZ Detoxification Services for Substance Abuse Treatment (ICD-10-PCS; principal; 2018-12-14)
DX: F10.230 Alcohol dependence with withdrawal, uncomplicated (principal); F12.20 Cannabis dependence, uncomplicated; F17.210 Nicotine dependence, cigarettes, uncomplicated; F33.9 Major depressive disorder, recurrent, unspecified; G47.00 Insomnia, unspecified; I11.0 Hypertensive heart disease with heart failure; I50.9 Heart failure, unspecified; J45.20 Mild intermittent asthma, uncomplicated; R74.8 Abnormal levels of other serum enzymes; M54.5 Low back pain; M25.512 Pain in left shoulder; G89.29 Other chronic pain; Z91.5 Personal history of self-harm
CPT/HCPCS: 36415; 80053; 84450; 85027; 86593; 87389

== ENCOUNTER 2020-05-11 16:15 | Inpatient (IN) | payer OTHER ==
[2020-05-11 17:41] VITALS: BMI 27.0
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
[2020-05-11] MEDS ORDERED: MAGNESIUM HYDROX 2400MG/30ML ORAL SUSPENSION 30 ML CUP PO PRN (22:46)
[2020-05-11] MEDS ORDERED: MENTHOL/PHENOL 1 EACH UD MM PRN (22:46)
[2020-05-11] MEDS ORDERED: MAGNESIUM CITRATE 300 ML BOTTLE PO PRN (22:46)
[2020-05-11] MEDS ORDERED: METHOCARBAMOL 500 MG TABLET PO PRN (22:46)
[2020-05-11] MEDS ORDERED: MAG HYDROX/AL HYDROX/SIMETH 30 ML UNIT-DOSE CUP PO PRN (22:46)
[2020-05-11] MEDS ORDERED: chlordiazePOXIDE HCL 25 MG CAPSULE PO PRN (22:46)
[2020-05-11] MEDS ORDERED: ACETAMINOPHEN 325 MG TABLET (FP) PO PRN ×2 (22:46)
[2020-05-11] MEDS ORDERED: IBUPROFEN 400 MG TABLET (FP) PO PRN (22:46)
[2020-05-11] MEDS ORDERED: BISMUTH SUBSALICYLATE 524 MG/30 ML UD PO PRN (22:46)
[2020-05-11] MEDS ORDERED: NICOTINE POLACRILEX 2 MG GUM BUC PRN (22:46)
[2020-05-11] MEDS ORDERED: ONDANSETRON *ODT* 4 MG TABLET SL ONE (23:15)
[2020-05-11] MEDS: chlordiazePOXIDE HCL 25 MG CAPSULE PO SCH (23:56)
[2020-05-12] MEDS: chlordiazePOXIDE HCL 25 MG CAPSULE PO SCH ×4 (05:51→22:16)
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
--- NOTE | 2020-05-12 10:26 | EKG ---
Test Reason : Blood Pressure : / mmHG Vent. Rate : 075 BPM Atrial Rate : 075 BPM P-R Int : 164 ms QRS Dur : 116 ms QT Int : 410 ms P-R-T Axes : 070 066 066 degrees QTc Int : 457 ms NORMAL SINUS RHYTHM NORMAL ECG WHEN COMPARED WITH ECG OF 10-MAR-2018 02:40, NO SIGNIFICANT CHANGE WAS FOUND Confirmed by Avtar Olivas ([id number]) on 05/12/2020 10:26:33 AM Referred By: Confirmed By:Avtar Olivas
[2020-05-12 11:03] LABS: HEMATOCRIT 44.9 % (35.4-49); HEMOGLOBIN 14.6 GM/dL (11.7-16.9); MCH 29.4 pg (25.7-33.7); MCHC 32.6 g/dl (32.0-35.9); MEAN CELL VOLUME 90.5 fl (80-96); MEAN PLT VOLUME 8.4 fl (7.5-11.1); PLATELET COUNT 190 K/MM3 (134-434); RBC 4.97 M/mm3 (4.00-5.60); RDW 14.6 % (11.9-15.9); WHITE BLOOD COUNT 6.8 K/mm3 (4.0-10.0)
[2020-05-12] MEDS: PRENATAL VITAMINS W/ FOLIC ACID TABLET (FP) PO SCH (11:14)
[2020-05-12] MEDS: NICOTINE 14 MG/24 HOURS TOPICAL PATCH TD SCH (11:16)
[2020-05-12] MEDS: QUEtiapine FUMARATE 50 MG TABLET PO SCH ×2 (11:16→17:38)
[2020-05-12] MEDS: ASPIRIN 81 MG CHEWABLE TABLETS PO SCH (11:16)
[2020-05-12 11:23] LABS: BLOOD UREA NITROGEN 7.8 mg/dL (7-18); CALCIUM 9.4 mg/dL (8.5-10.1)
[2020-05-12 11:27] LABS: BILIRUBIN,TOTAL 0.7 mg/dL (0.2-1); CREATININE 0.7 mg/dL (0.55-1.3); TOT PROT 7.4 g/dl (6.4-8.2)
[2020-05-12] MEDS: LISINOPRIL 5 MG TABLET (FP) PO SCH (11:57)
[2020-05-12] MEDS: VENLAFAXINE HCL 75 MG TABLET PO SCH (11:57)
--- NOTE | 2020-05-12 12:06 | PN ---
S CIWA - CIWA Score Nausea/Vomitin-No Nausea/No Vomiting Muscle Tremors: 3 Anxiety: 3 Agitation: 3 Paroxysmal Sweats: 3 Orientation: 0-Oriented Tacttile Disturbances: 0-None Auditory Disturbances: 0-None Visual Disturbances: 0-None Headache: 0-None Present CIWA-Ar Total Score: 12 BHS Progress Note (SOAP) Subjective: sweats shakes interrupted sleep agitation body aches weak/tired Objective: 05/12/20 12:03 Vital Signs Temperature 96.9 F L 05/12/20 08:44 Pulse Rate 87 05/12/20 08:44 Respiratory Rate 18 05/12/20 08:44 Blood Pressure 164/109 H 05/12/20 09:21 O2 Sat by Pulse Oximetry (%) 96 05/12/20 05:42 Laboratory Tests 05/12/20 05/12/20 05/12/20 08:05 08:05 08:05 WBC 6.8 RBC 4.97 Hgb 14.6 Hct 44.9 D MCV 90.5 MCH 29.4 D MCHC 32.6 RDW 14.6 D Plt Count 190 MPV 8.4 Sodium 139 Potassium 4.0 Chloride 104 Carbon Dioxide 28 Anion Gap 7 L BUN 7.8 Creatinine 0.7 Est GFR (CKD-EPI)AfAm 134.91 Est GFR (CKD-EPI)NonAf 116.40 Random Glucose 88 Calcium 9.4 Total Bilirubin 0.7 AST 59 H ALT 46 Alkaline Phosphatase 129 H Total Protein 7.4 Albumin 4.0 Syphilis Serology Non-reactive labs noted aaox3 ambulating no acute distress BP 164/109 noted; pt was ordered all his BP medication. RN will reassess BP manually Assessment: 05/12/20 12:05 withdrawals Plan: continue detox monitor BP status
[2020-05-12] MEDS ORDERED: MELATONIN 5 MG TABLETS PO SCH (22:00)
[2020-05-12] MEDS: ATORVASTATIN CA 40 MG TABLET (FP) PO SCH (22:16)
[2020-05-12] MEDS: QUEtiapine FUMARATE 300 MG TABLET PO SCH (22:16)
[2020-05-12] MEDS: THIAMINE HCL 100 MG TABLET (FP) PO SCH (22:16)
[2020-05-12] MEDS: MELATONIN 5 MG TABLETS PO PRN (22:18)
[2020-05-13] MEDS: chlordiazePOXIDE HCL 25 MG CAPSULE PO SCH ×4 (05:49→22:02)
[2020-05-13] MEDS: ASPIRIN 81 MG CHEWABLE TABLETS PO SCH (10:41)
[2020-05-13] MEDS: PRENATAL VITAMINS W/ FOLIC ACID TABLET (FP) PO SCH (10:41)
[2020-05-13] MEDS: NICOTINE 14 MG/24 HOURS TOPICAL PATCH TD SCH (10:41)
[2020-05-13] MEDS: LISINOPRIL 5 MG TABLET (FP) PO SCH (10:42)
[2020-05-13] MEDS: VENLAFAXINE HCL 75 MG TABLET PO SCH (10:42)
[2020-05-13] MEDS: QUEtiapine FUMARATE 50 MG TABLET PO SCH ×2 (10:42→17:29)
--- NOTE | 2020-05-13 11:27 | PN ---
S CIWA - CIWA Score Nausea/Vomitin-No Nausea/No Vomiting Muscle Tremors: 2 Anxiety: 2 Agitation: 3 Paroxysmal Sweats: 2 Orientation: 0-Oriented Tacttile Disturbances: 0-None Auditory Disturbances: 0-None Visual Disturbances: 0-None Headache: 0-None Present CIWA-Ar Total Score: 9 BHS Progress Note (SOAP) Subjective: sweats shakes interrupted sleep Objective: 05/13/20 11:28 Vital Signs Temperature 97.1 F L 05/13/20 08:55 Pulse Rate 71 05/13/20 08:55 Respiratory Rate 19 05/13/20 08:55 Blood Pressure 153/86 05/13/20 08:55 O2 Sat by Pulse Oximetry (%) 97 05/13/20 08:55 Laboratory Tests 05/11/20 05/12/20 05/12/20 11:50 08:05 08:05 WBC 6.8 RBC 4.97 Hgb 14.6 Hct 44.9 D MCV 90.5 MCH 29.4 D MCHC 32.6 RDW 14.6 D Plt Count 190 MPV 8.4 Sodium Potassium Chloride Carbon Dioxide Anion Gap BUN Creatinine Est GFR (CKD-EPI)AfAm Est GFR (CKD-EPI)NonAf Random Glucose Calcium Total Bilirubin AST ALT Alkaline Phosphatase Total Protein Albumin Syphilis Serology Non-reactive COVID-19 ([facility]) Not detected 05/12/20 08:05 WBC RBC Hgb Hct MCV MCH MCHC RDW Plt Count MPV Sodium 139 Potassium 4.0 Chloride 104 Carbon Dioxide 28 Anion Gap 7 L BUN 7.8 Creatinine 0.7 Est GFR (CKD-EPI)AfAm 134.91 Est GFR (CKD-EPI)NonAf 116.40 Random Glucose 88 Calcium 9.4 Total Bilirubin 0.7 AST 59 H ALT 46 Alkaline Phosphatase 129 H Total Protein 7.4 Albumin 4.0 Syphilis Serology COVID-19 ([facility]LLA) labs noted aaox3 ambulating no acute distress Assessment: 05/13/20 12:17 withdrawal sx Plan: continue detox increase fluids
[2020-05-13] MEDS: THIAMINE HCL 100 MG TABLET (FP) PO SCH (22:02)
[2020-05-13] MEDS: ATORVASTATIN CA 40 MG TABLET (FP) PO SCH (22:02)
[2020-05-13] MEDS: QUEtiapine FUMARATE 300 MG TABLET PO SCH (22:02)
[2020-05-13] MEDS: MELATONIN 5 MG TABLETS PO PRN (22:27)
[2020-05-14] MEDS ORDERED: chlordiazePOXIDE HCL 10 MG CAPSULE PO PRN
[2020-05-14] MEDS: chlordiazePOXIDE HCL 10 MG CAPSULE PO SCH ×4 (05:19→22:46)
--- NOTE | 2020-05-14 11:10 | PN ---
[facility] CIWA - CIWA Score Nausea/Vomitin-Mild Nausea/No Vomiting Muscle Tremors: 1-None Visible, but [place] Anxiety: 2 Agitation: 2 Paroxysmal Sweats: No Perspiration Orientation: 0-Oriented Tacttile Disturbances: 0-None Auditory Disturbances: 0-None Visual Disturbances: 0-None Headache: 1-Very Mild CIWA-Ar Total Score: 7 S Progress Note (SOAP) Subjective: alert,irritable,anxious,interrupted sleep,aching pain Objective: 05/14/20 11:09 Vital Signs Temperature 97.1 F L 05/14/20 05:16 Pulse Rate 51 L 05/14/20 05:16 Respiratory Rate 18 05/14/20 05:16 Blood Pressure 116/68 05/14/20 05:16 O2 Sat by Pulse Oximetry (%) 97 05/14/20 05:16 05/14/20 11:10 Laboratory Last Values WBC 6.8 K/mm3 (4.0-10.0) 05/12/20 08:05 RBC 4.97 M/mm3 (4.00-5.60) 05/12/20 08:05 Hgb 14.6 GM/dL (11.7-16.9) 05/12/20 08:05 Hct 44.9 % (35.4-49) D 05/12/20 08:05 MCV 90.5 fl (80-96) 05/12/20 08:05 MCH 29.4 pg (25.7-33.7) D 05/12/20 08:05 MCHC 32.6 g/dl (32.0-35.9) 05/12/20 08:05 RDW 14.6 % (11.9-15.9) D 05/12/20 08:05 Plt Count 190 K/MM3 (134-434) 05/12/20 08:05 MPV 8.4 fl (7.5-11.1) 05/12/20 08:05 Sodium 139 mmol/L (136-145) 05/12/20 08:05 Potassium 4.0 mmol/L (3.5-5.1) 05/12/20 08:05 Chloride 104 mmol/L (98-107) 05/12/20 08:05 Carbon Dioxide 28 mmol/L (21-32) 05/12/20 08:05 Anion Gap 7 MMOL/L (8-16) L 05/12/20 08:05 BUN 7.8 mg/dL (7-18) 05/12/20 08:05 Creatinine 0.7 mg/dL (0.55-1.3) 05/12/20 08:05 Est GFR (CKD-EPI)AfAm 134.91 05/12/20 08:05 Est GFR (CKD-EPI)NonAf 116.40 05/12/20 08:05 Random Glucose 88 mg/dL (74-106) 05/12/20 08:05 Calcium 9.4 mg/dL (8.5-10.1) 05/12/20 08:05 Total Bilirubin 0.7 mg/dL (0.2-1) 05/12/20 08:05 AST 59 U/L (15-37) H 05/12/20 08:05 ALT 46 U/L (13-61) 05/12/20 08:05 Alkaline Phosphatase 129 U/L (45-117) H 05/12/20 08:05 Total Protein 7.4 g/dl (6.4-8.2) 05/12/20 08:05 Albumin 4.0 g/dl (3.4-5.0) 05/12/20 08:05 Syphilis Serology Non-reactive (NONREACTIVE) 05/12/20 08:05 COVID-19 ([facility]) Not detected (Not Detected) 05/11/20 11:50 Assessment: 05/14/20 11:10 withdrawal symptom Plan: continue detox,librium regimen
[2020-05-14] MEDS: ASPIRIN 81 MG CHEWABLE TABLETS PO SCH (11:33)
[2020-05-14] MEDS: QUEtiapine FUMARATE 50 MG TABLET PO SCH ×2 (11:33→17:31)
[2020-05-14] MEDS: VENLAFAXINE HCL 75 MG TABLET PO SCH (11:33)
[2020-05-14] MEDS: PRENATAL VITAMINS W/ FOLIC ACID TABLET (FP) PO SCH (11:38)
[2020-05-14] MEDS: LISINOPRIL 5 MG TABLET (FP) PO SCH (11:38)
[2020-05-14] MEDS: NICOTINE 14 MG/24 HOURS TOPICAL PATCH TD SCH (11:40)
[2020-05-14] MEDS: QUEtiapine FUMARATE 300 MG TABLET PO SCH (22:46)
[2020-05-14] MEDS: ATORVASTATIN CA 40 MG TABLET (FP) PO SCH (22:46)
[2020-05-14] MEDS: THIAMINE HCL 100 MG TABLET (FP) PO SCH (22:46)
[2020-05-14] MEDS: MELATONIN 5 MG TABLETS PO PRN (22:47)
[2020-05-15] MEDS ORDERED: chlordiazePOXIDE HCL 10 MG CAPSULE PO SCH (05:00)
[2020-05-15 06:10] VITALS: BP 112/56; PULSE 64; TEMP 97.3
[2020-05-15] MEDS: ASPIRIN 81 MG CHEWABLE TABLETS PO SCH (10:06)
[2020-05-15] MEDS: VENLAFAXINE HCL 75 MG TABLET PO SCH (10:06)
[2020-05-15] MEDS: LISINOPRIL 5 MG TABLET (FP) PO SCH (10:07)
[2020-05-15] MEDS: QUEtiapine FUMARATE 50 MG TABLET PO SCH (10:07)
[2020-05-15] MEDS: PRENATAL VITAMINS W/ FOLIC ACID TABLET (FP) PO SCH (10:07)
[2020-05-15] MEDS: NICOTINE 14 MG/24 HOURS TOPICAL PATCH TD SCH (10:08)
--- NOTE | 2020-05-15 11:25 | PN ---
S CIWA - CIWA Score Nausea/Vomitin-Mild Nausea/No Vomiting Muscle Tremors: 1-None Visible, but [place] Anxiety: 1-Mildly Anxious Agitation: 1-Slight > Activity Paroxysmal Sweats: No Perspiration Orientation: 0-Oriented Tacttile Disturbances: 1-Very Mild Itch/Numbness Auditory Disturbances: 0-None Visual Disturbances: 0-None Headache: 1-Very Mild CIWA-Ar Total Score: 6 BHS Progress Note (SOAP) Subjective: alert,irritable,anxious,interrupted sleep,aching pain in body and back Objective: 05/15/20 11:23 Vital Signs Temperature 97.3 F L 05/15/20 05:04 Pulse Rate 64 05/15/20 05:04 Respiratory Rate 20 05/15/20 05:04 Blood Pressure 112/56 L 05/15/20 05:04 O2 Sat by Pulse Oximetry (%) 98 05/15/20 05:04 Assessment: 05/15/20 11:23 withdrawal symptom Plan: continue detox librium regimen,discharge in am
--- NOTE | 2020-05-15 12:31 | PN ---
[facility] Progress Note Note: patient would like to be discharged today,stable for discharge ,follow up with lukas hernandez and abhinav
--- NOTE | 2020-05-15 12:48 | DS ---
[facility] Detox Discharge Summary Admission Date: 05/11/20 Discharge Date: 05/15/20 - History Present History: Alcohol Dependence, Cannabis Dependence Additional Comments: alert,oriented x 3 ambulatory on unit lung clear on auscultation bilaterally abdomen soft,no pain,no tenderness extremity no swelling ,no pain no withdrawal symptom stable for discharge today has all medications at home follow up with after care program as [facility] patient will go home stay with [facility] then to rehab total time of discharge 35 minutes Pertinent Past History: asthma hypertension depression ptsd history of chf nicotine dependence alcohol related seizure - Physical Exam Results Vital Signs: Vital Signs Temperature 97.3 F L 05/15/20 05:04 Pulse Rate 64 05/15/20 05:04 Respiratory Rate 20 05/15/20 05:04 Blood Pressure 112/56 L 05/15/20 05:04 O2 Sat by Pulse Oximetry (%) 98 05/15/20 05:04 Pertinent Admission Physical Exam Findings: withdrawal sing and symptom Vital Signs Temperature 97.3 F L 05/15/20 05:04 Pulse Rate 64 05/15/20 05:04 Respiratory Rate 20 05/15/20 05:04 Blood Pressure 112/56 L 05/15/20 05:04 O2 Sat by Pulse Oximetry (%) 98 05/15/20 05:04 Laboratory Last Values WBC 6.8 K/mm3 (4.0-10.0) 05/12/20 08:05 RBC 4.97 M/mm3 (4.00-5.60) 05/12/20 08:05 Hgb 14.6 GM/dL (11.7-16.9) 05/12/20 08:05 Hct 44.9 % (35.4-49) D 05/12/20 08:05 MCV 90.5 fl (80-96) 05/12/20 08:05 MCH 29.4 pg (25.7-33.7) D 05/12/20 08:05 MCHC 32.6 g/dl (32.0-35.9) 05/12/20 08:05 RDW 14.6 % (11.9-15.9) D 05/12/20 08:05 Plt Count 190 K/MM3 (134-434) 05/12/20 08:05 MPV 8.4 fl (7.5-11.1) 05/12/20 08:05 Sodium 139 mmol/L (136-145) 05/12/20 08:05 Potassium 4.0 mmol/L (3.5-5.1) 05/12/20 08:05 Chloride 104 mmol/L (98-107) 05/12/20 08:05 Carbon Dioxide 28 mmol/L (21-32) 05/12/20 08:05 Anion Gap 7 MMOL/L (8-16) L 05/12/20 08:05 BUN 7.8 mg/dL (7-18) 05/12/20 08:05 Creatinine 0.7 mg/dL (0.55-1.3) 05/12/20 08:05 Est GFR (CKD-EPI)AfAm 134.91 05/12/20 08:05 Est GFR (CKD-EPI)NonAf 116.40 05/12/20 08:05 Random Glucose 88 mg/dL (74-106) 05/12/20 08:05 Calcium 9.4 mg/dL (8.5-10.1) 05/12/20 08:05 Total Bilirubin 0.7 mg/dL (0.2-1) 05/12/20 08:05 AST 59 U/L (15-37) H 05/12/20 08:05 ALT 46 U/L (13-61) 05/12/20 08:05 Alkaline Phosphatase 129 U/L (45-117) H 05/12/20 08:05 Total Protein 7.4 g/dl (6.4-8.2) 05/12/20 08:05 Albumin 4.0 g/dl (3.4-5.0) 05/12/20 08:05 Syphilis Serology Non-reactive (NONREACTIVE) 05/12/20 08:05 COVID-19 ([facility]) Not detected (Not Detected) 05/11/20 11:50 - Treatment Hospital Course: Detox Protocol Followed, Detoxed Safely, Responded well, Discharged Condition Good, Rehab Referral Accepted Patient has Accepted a Rehab Referral to: [facility] - Medication Discharge Medications: Ambulatory Orders Aspirin [ASA -] 81 mg PO DAILY 30 Days #30 tab.chew 03/13/18 Lisinopril 2.5 mg PO DAILY #14 tablet 03/13/18 Metoprolol Succinate 50 mg PO DAILY 15 Days #15 tab.er.24h 03/13/18 Sertraline HCl [Zoloft -] 150 mg PO DAILY 12/14/18 Atorvastatin Ca [Lipitor] 40 mg PO HS 05/12/20 - Diagnosis (1) Alcohol dependence with uncomplicated withdrawal Current Visit: Yes Status: Acute (2) Asthma Current Visit: Yes Status: Chronic Qualifiers: Asthma severity: mild Asthma persistence: intermittent Asthma complication type: uncomplicated Qualified Code(s): J45.20 - Mild intermittent asthma, uncomplicated (3) CHF (congestive heart failure) Current Visit: Yes Status: Chronic Qualifiers: Heart failure type: unspecified Heart failure chronicity: unspecified Qualified Code(s): I50.9 - Heart failure, unspecified (4) Cannabis dependence Current Visit: Yes Status: Chronic (5) HTN (hypertension) Current Visit: Yes Status: Chronic Qualifiers: Hypertension type: essential hypertension Qualified Code(s): I10 - Essential (primary) hypertension (6) Hyperlipidemia Current Visit: Yes Status: Chronic Qualifiers: Hyperlipidemia type: unspecified Qualified Code(s): E78.5 - Hyperlipidemia, unspecified (7) Nicotine dependence Current Visit: Yes Status: Chronic Qualifiers: Nicotine product type: cigarettes Substance use status: uncomplicated Qualified Code(s): F17.210 - Nicotine dependence, cigarettes, uncomplicated (8) Alcohol related seizure Current Visit: Yes Status: Resolved (9) PTSD (post-traumatic stress disorder) Current Visit: Yes Status: Ruled-out (10) MDD (major depressive disorder) Current Visit: No Status: Chronic - AMA Did Patient Leave Against Medical Advice: No
[2020-05-16] MEDS ORDERED: chlordiazePOXIDE HCL 10 MG CAPSULE PO ONE (05:00)
== END 2020-05-15 12:48 | disposition home or self-care (01) | DRG 775 ==
LOC: YASAS 16:15 → Y6N 22:51
PROVIDERS: ADMIT Allergy & Immunology; ATTEND Allergy & Immunology
PROC: HZ2ZZZZ Detoxification Services for Substance Abuse Treatment (ICD-10-PCS; principal; 2020-05-11)
DX: F10.230 Alcohol dependence with withdrawal, uncomplicated (principal); F10.24 Alcohol dependence with alcohol-induced mood disorder; F10.280 Alcohol dependence with alcohol-induced anxiety disorder; F10.282 Alcohol dependence with alcohol-induced sleep disorder; F12.20 Cannabis dependence, uncomplicated; F17.210 Nicotine dependence, cigarettes, uncomplicated; F32.9 Major depressive disorder, single episode, unspecified; J45.20 Mild intermittent asthma, uncomplicated; I11.0 Hypertensive heart disease with heart failure; I50.9 Heart failure, unspecified; E78.5 Hyperlipidemia, unspecified; R01.1 Cardiac murmur, unspecified; Z88.0 Allergy status to penicillin; Z86.69 Personal history of other diseases of the nervous system and sense organs; Z91.5 Personal history of self-harm
CPT/HCPCS: 36415; 80053; 85027; 86780; 93005; 93010; U0003